=== PATIENT | male | born 1960 | race Caucasian/White ===

== ENCOUNTER 2016-08-21 20:48 | Inpatient (IN) | payer MEDICARE, OTHER ==
--- NOTE | ~2016-08-21 | HP ---
History And Physical [address] [address] NAME: YADI KELLY : 64 STATUS : ADM IN PAT#: [id number] AGE: 56 ADM/REG DATE : 08/21/16 MR#: [id number] REPORT SERV DATE: 08/22/16 DICTATED BY: RAY SÁNCHEZ DATE: 08/21/16 REPORT STATUS : Draft TRANSCRIBED BY: MODDg DATE: 08/21/16 DATE OF ADMISSION: 08/21/2016 CHIEF COMPLAINT: A 56-year-old male presenting with recurrent left leg cellulitis. HISTORY OF PRESENTING ILLNESS: The patient's history was obtained through an interview with the patient coupled with review of [facility] and medical records. The patient has chronic venous stasis with occasional ulcerations and infection particularly affecting his left lower extremity. He states that just on the day of admission, he began to develop extreme left leg pain that reminded him of previous infections related to his lymphedema and venous stasis. He developed chills, rigors, subjective fevers. He described left leg discomfort, an aching quality, "like an elephant kicking you," 10/10 severity. He has chronic wheeze, but denies shortness of breath. He has a chronic nonproductive cough. All these symptoms are stable from baseline. No chest pain. No abdominal pain. No headache. No nausea or vomiting. No change of bowel or bladder habit. REVIEW OF SYSTEMS: Otherwise, a 14-point review of systems was obtained and was negative. PAST MEDICAL HISTORY: 1. Bilateral leg cellulitis mostly affecting the left lower extremity with stasis ulcers previously with MSSA and Pseudomonas. 2. DVT, but not on blood thinner any longer. 3. Headaches. 4. Irritable bowel syndrome. 5. Morbid obesity with body mass index greater than 80 and functional paraplegia now. 6. Pneumonia. 7. Hypertension. 8. B12 deficiency. 9. Left lower extremity cyanosis. 10.COPD. PAST SURGICAL HISTORY: 1. Perforated ulcer surgery. 2. Bilateral hip surgery. 3. Vein ligation surgery of the legs. 4. Ear surgeries. History And Physical [address] [address] NAME: YADI KELLY : 64 STATUS : ADM IN PAT#: [id number] AGE: 56 ADM/REG DATE : 08/21/16 MR#: [id number] REPORT SERV DATE: 08/22/16 DICTATED BY: RAY SÁNCHEZ DATE: 08/21/16 REPORT STATUS : Draft TRANSCRIBED BY: MC DATE: 08/21/16 ALLERGIES: SULFA AND AN INTOLERANCE AT TIMES TO GREEN VEGETABLES. SOCIAL HISTORY: The patient smokes cigarettes. Drinks occasional alcohol. He lives with a girlfriend, who helps take care of him. He is wheelchair bound. He has no children. FAMILY HISTORY: Diabetes and heart disease. CURRENT MEDICATIONS: Include albuterol inhaler, Augmentin 875 mg p.o. b.i.d., Silvadene cream. PHYSICAL EXAMINATION: VITAL SIGNS: Temperature 98.6, pulse 114, blood pressure 136/86, respiratory rate 19, O2 saturation 93% on 3 L nasal cannula. GENERAL: A pleasant, cooperative male, in no particular distress at this time. HEENT: Pupils equal, round, and reactive to light. No conjunctival pallor. No scleral icterus. Nares are patent. Oropharynx is clear of obstruction. Moist mucous membranes. NECK: Trachea midline. No thyromegaly. LYMPH: No cervical lymphadenopathy. No supraclavicular lymphadenopathy. No left inguinal lymphadenopathy can be appreciated, although exam is limited by the patient's morbid obesity. RESPIRATORY: The patient does have scattered wheezes and mild upper respiratory rhonchi, prolonged expiratory phase. He has a nonlabored respiratory effort though. CARDIOVASCULAR: Tachycardic. Regular rhythm. No murmurs, rubs, or gallops. Chronic appearing lower extremity edema of the left more affected than the right. ABDOMEN: Central pattern of morbid obesity, but nontender throughout. No hepatosplenomegaly can be appreciated. DERMATOLOGICAL: Warm, dry extremities. The patient's left lower extremity shows significant cyanotic changes with a purplish discoloration and scaling of the skin. His left leg shows extensive areas of heat that is literally radiating off his leg. Scattered areas of erythema. I do not appreciate any purulent drainage to culture at this time, but it is tender throughout and swollen. PSYCHIATRIC: Normal affect. Good mood. Alert and oriented x3. LABORATORY DATA: White blood cell count 7.7, hemoglobin 17, hematocrit 52, platelets 99. Sodium 140, potassium 4.0, chloride 100, bicarb 32, BUN 8, creatinine 0.76, glucose 141, albumin 2.7. Lactic acid 1.9. Liver enzymes within normal limits. ASSESSMENT AND PLAN: 1. Left leg cellulitis with venous stasis ulcers. Check blood cultures. Place on IV vancomycin with history of staph infection and IV Zosyn with history of Pseudomonas. Obtain a wound care consult. 2. Morbid obesity with functional paraplegia. Body mass index of greater than 80. 3. Chronic left foot cyanosis. 4. Chronic obstructive pulmonary disease. Duo nebulizers. Check chest x-ray. 5. Thrombocytopenia. We will monitor closely. History And Physical [address] [address] NAME: YADI KELLY : 64 STATUS : ADM IN [facility]#: [id number] AGE: 56 ADM/REG DATE : 08/21/16 MR#: [id number] REPORT SERV DATE: 08/22/16 DICTATED BY: RAY SÁNCHEZ DATE: 08/21/16 REPORT STATUS : Draft TRANSCRIBED BY: MC DATE: 08/21/16 [facility] Ray Sánchez M.D. / [id number] CC: Bambi Marie M.D.
--- NOTE | ~2016-08-21 | DS ---
Discharge Summary [id number] [place]. [address] NAME: YADI KELLY : 64 STATUS : DIS IN PAT#: [id number] AGE: 56 ADM/REG DATE : 08/21/16 MR#: [id number] REPORT SERV DATE: 08/27/16 DICTATED BY: NAHOMY OLMSTEAD DATE: 08/26/16 REPORT STATUS : Draft TRANSCRIBED BY: MC DATE: 08/26/16 ADMISSION DATE: 08/21/2016 DISCHARGE DATE: 08/26/2016 REASON FOR ADMISSION: Recurrent cellulitis. HISTORY OF PRESENT ILLNESS: Please refer Dr. Ritesh Sánchez's history and physical dated 08/21/2016 for complete details regarding the patient's admission. In brief, the patient was admitted to the Hospitalist Service for management of his left lower extremity cellulitis. HOSPITAL COURSE: The patient had uncomplicated hospital course. The patient is super morbidly obese. He has chronic venous stasis ulcers. He uses home health wound care. He noticed that his extremities were becoming more swollen and red. He was admitted to the Hospitalist Service for IV antibiotics. He was initially started on vancomycin and Zosyn. I switched him over to vancomycin and Ancef. He has completed about six days now worth of IV antibiotics. His still continues to have chronic lymphedema and stasis ulcers, however, his erythema has markedly improved. I also tried add Lasix IV diuresis, but he was declining it because he would have to urinate more frequently and could not get to the commode quickly enough, so he had refused most of the dosing. The patient has reached maximal hospitalization and will be discharged home today in a stable condition. DISCHARGE DIAGNOSES: Left leg cellulitis with venous stasis ulcers now resolving, chronic lymphedema, morbid obesity with functional paraplegia, chronic hypoxic respiratory failure with 3 liters baseline nasal cannula, chronic obstructive pulmonary disease, thrombocytopenia, and chronic left foot cyanosis. PROCEDURES: Routine labs and chest x-ray. DISCHARGE MEDICATIONS: Include albuterol p.r.n., Silvadene cream, doxycycline 100 mg twice a day for five days, Ceftin 500 mg twice a day for five days, and hydrocodone #12 given. FOLLOWUP: The patient will follow up with PCP and home health. ANGE Nahomy Olmstead MD / [id number] CC: Nahomy Olmstead MD
[~2016-08-21 20:48] MED LIST: ACET500CAP PO; AUG875 PO; COMBIVENT RESPIM4 GM INH; DURICEF PO; PENICILLN VK500 MG PO; PRIN10 PO; PROAIR HFA INH; SILVADENE CREAM 1% TOP; SYMBICORT INH; UNKNOWN ABX PO; VENTOLIN HFA INH
[2016-08-21 21:03] LABS: BASOPHILS 0 %; EOSINOPHILS 0.1 %; EOSINOPHILS ABSOLUTE 0.01 10/3/uL (0.0-0.53); HEMATOCRIT 51.7 % (40.0-51.0); HEMOGLOBIN 17.4 g/dL (13.6-17.8); LYMPHOCYTES 4.6 %; LYMPHOCYTES ABSOLUTE 0.35 10/3/uL (0.67-4.30); MEAN CORPUS HGB CONC 33.7 g/dL (32.0-36.0); MEAN CORPUSCULAR HEMOGLOB 33.7 pg (26.0-34.0); MEAN PLATELET VOLUME 10.2 fL (9.2-13.0); MONOCYTES 2.4 %; MONOCYTES ABSOLUTE 0.18 10/3/uL (0.21-1.20); NEUTROPHILS 92.9 %; NEUTROPHILS ABSOLUTE 7.11 10/3/uL (2.02-8.40); RED CELL COUNT 5.17 10/6/uL (4.7-6.1)
[2016-08-21 21:04] LABS: ER CBC TAT 0 Hrs 05 Mins; MANUAL DIFF NO %; PLATELET COUNT 99 10/3/uL (150-400); WHITE BLOOD CELLS 7.7 10/3/uL (4.5-10.5)
[2016-08-21 21:11] LABS: INTERNATIONAL NORMAL RATI 1.1 UNITS (-); PARTIAL THROMBO TIME 30.2 SEC (22.5-37.2)
[2016-08-21 21:17] LABS: A/G RATIO 0.5 (0.7-1.9); ALBUMIN 2.7 G/DL (3.5-5.0); ALKALINE PHOSPHATASE 117 U/L (45-117); BUN (BLOOD UREA NITROGEN) 8 MG/DL (6-23); CALCIUM, SERUM 8.2 MG/DL (8.5-10.4); CHLORIDE, SERUM 100 MMOL/L (96-112); CO2 (CARBON DIOXIDE) 32 MMOL/L (24-34); CREATININE 0.76 MG/DL (0.70-1.30); GFR AFRICAN AMERICAN 120 ML/MIN (>=60); GFR NON AFRICAN AMERICAN 103 ML/MIN (>=60); GLUCOSE, SERUM 141 MG/DL (60-99); SGOT(AST) 33 U/L (5-40); SGPT(ALT) 7 U/L (5-65); SODIUM, SERUM 140 MMOL/L (135-148); TOTAL BILIRUBIN 0.9 MG/DL (0-1.2); TOTAL PROTEIN 7.7 G/DL (6.0-8.5)
[2016-08-21 21:19] LABS: LACTATE 1.9 MMOL/L (0.3-2.4)
[2016-08-21 22:33] LABS: WBC (NOT ORDERED) (RFLEX) 0 (0-5)
[2016-08-21 22:39] LABS: ASCORBIC ACID (UR NOT ORDER) NEG (NEG); BILIRUBIN, URINE NEGATIVE (NEG); KETONE, URINE NEGATIVE (NEG); LEUKOCYTE ESTERASE(NOT OR NEG (NEG); NITRITE (URINE) NEG (NEG)
[2016-08-22 06:59] LABS: BASOPHILS 0.1 %; BASOPHILS ABSOLUTE 0.02 10/3/uL (0.0-0.16); EOSINOPHILS 0.2 %; EOSINOPHILS ABSOLUTE 0.03 10/3/uL (0.0-0.53); HEMATOCRIT 50.7 % (40.0-51.0); HEMOGLOBIN 16.3 g/dL (13.6-17.8); IMMATURE GRANULOCYTES 0.5 %; IMMATURE GRANULOCYTES ABSOLUTE 0.07 10/3/uL (0.0-0.11); LYMPHOCYTES 4.8 %; MEAN CORPUS HGB CONC 32.1 g/dL (32.0-36.0); MEAN CORPUSCULAR HEMOGLOB 32.7 pg (26.0-34.0); MEAN CORPUSCULAR VOLUME 101.8 fL (80-100); MONOCYTES 2.3 %; MONOCYTES ABSOLUTE 0.34 10/3/uL (0.21-1.20); NEUTROPHILS 92.1 %; NEUTROPHILS ABSOLUTE 13.52 10/3/uL (2.02-8.40); PLATELET COUNT 104 10/3/uL (150-400); RED CELL COUNT 4.98 10/6/uL (4.7-6.1)
[2016-08-22 07:00] LABS: WHITE BLOOD CELLS 14.7 10/3/uL (4.5-10.5)
[2016-08-22 07:01] LABS: MANUAL DIFF NO %
[2016-08-22 07:05] LABS: INTERNATIONAL NORMAL RATI 1.2 UNITS (-); PARTIAL THROMBO TIME 33.7 SEC (22.5-37.2); PROTIME (NOT ORD) 15.2 SEC (12.0-14.5)
[2016-08-22 07:20] LABS: A/G RATIO 0.5 (0.7-1.9); ALBUMIN 2.3 G/DL (3.5-5.0); ALKALINE PHOSPHATASE 88 U/L (45-117); BUN (BLOOD UREA NITROGEN) 12 MG/DL (6-23); CHLORIDE, SERUM 99 MMOL/L (96-112); CO2 (CARBON DIOXIDE) 30 MMOL/L (24-34); CREATININE 0.76 MG/DL (0.70-1.30); GFR AFRICAN AMERICAN 120 ML/MIN (>=60); GFR NON AFRICAN AMERICAN 103 ML/MIN (>=60); GLOBULIN 4.6 G/DL (2.5-4.1); GLUCOSE, SERUM 94 MG/DL (60-99); POTASSIUM, SERUM 4.1 MMOL/L (3.5-5.3); SGOT(AST) 30 U/L (5-40); SGPT(ALT) 8 U/L (5-65); SODIUM, SERUM 137 MMOL/L (135-148); TOTAL BILIRUBIN 2.9 MG/DL (0-1.2); TOTAL PROTEIN 6.9 G/DL (6.0-8.5)
[2016-08-23 05:48] LABS: BASOPHILS 0.1 %; BASOPHILS ABSOLUTE 0.01 10/3/uL (0.0-0.16); EOSINOPHILS 0.8 %; EOSINOPHILS ABSOLUTE 0.06 10/3/uL (0.0-0.53); HEMATOCRIT 46.8 % (40.0-51.0); HEMOGLOBIN 15.3 g/dL (13.6-17.8); IMMATURE GRANULOCYTES 0.4 %; IMMATURE GRANULOCYTES ABSOLUTE 0.03 10/3/uL (0.0-0.11); LYMPHOCYTES 10.5 %; LYMPHOCYTES ABSOLUTE 0.84 10/3/uL (0.67-4.30); MANUAL DIFF NO %; MEAN CORPUS HGB CONC 32.7 g/dL (32.0-36.0); MEAN CORPUSCULAR HEMOGLOB 33.4 pg (26.0-34.0); MEAN CORPUSCULAR VOLUME 102.2 fL (80-100); MEAN PLATELET VOLUME 10.2 fL (9.2-13.0); MONOCYTES 5.9 %; MONOCYTES ABSOLUTE 0.47 10/3/uL (0.21-1.20); NEUTROPHILS 82.3 %; NEUTROPHILS ABSOLUTE 6.57 10/3/uL (2.02-8.40); PLATELET COUNT 96 10/3/uL (150-400); RBC DISTRIBUTION WIDTH 14.2 % (12.0-16.0); RED CELL COUNT 4.58 10/6/uL (4.7-6.1)
[2016-08-23 06:05] LABS: A/G RATIO 0.5 (0.7-1.9); ALBUMIN 2.2 G/DL (3.5-5.0); ALKALINE PHOSPHATASE 82 U/L (45-117); BUN (BLOOD UREA NITROGEN) 9 MG/DL (6-23); CALCIUM, SERUM 7.9 MG/DL (8.5-10.4); CHLORIDE, SERUM 99 MMOL/L (96-112); CO2 (CARBON DIOXIDE) 33 MMOL/L (24-34); CREATININE 0.67 MG/DL (0.70-1.30); GFR AFRICAN AMERICAN 126 ML/MIN (>=60); GFR NON AFRICAN AMERICAN 109 ML/MIN (>=60); GLOBULIN 4.6 G/DL (2.5-4.1); POTASSIUM, SERUM 4.1 MMOL/L (3.5-5.3); SGOT(AST) 29 U/L (5-40); SGPT(ALT) 8 U/L (5-65); SODIUM, SERUM 136 MMOL/L (135-148); TOTAL PROTEIN 6.8 G/DL (6.0-8.5)
[2016-08-23 06:11] LABS: GLUCOSE, SERUM 113 MG/DL (60-99); TOTAL BILIRUBIN 1.8 MG/DL (0-1.2)
[2016-08-23 06:43] LABS: PROCALCITONIN 4.58 ng/mL (<0.5)
[2016-08-24 07:29] LABS: BUN (BLOOD UREA NITROGEN) 8 MG/DL (6-23); CHLORIDE, SERUM 97 MMOL/L (96-112); CO2 (CARBON DIOXIDE) 36 MMOL/L (24-34); CREATININE 0.64 MG/DL (0.70-1.30); GFR AFRICAN AMERICAN 129 ML/MIN (>=60); GFR NON AFRICAN AMERICAN 111 ML/MIN (>=60); GLUCOSE, SERUM 94 MG/DL (60-99); PHOSPHORUS, SERUM 3.5 MG/DL (2.5-4.5); SODIUM, SERUM 138 MMOL/L (135-148); VANCOMYCIN TROUGH 9.4 MCG/ML (10.0-20.0)
[2016-08-26] MEDS ORDERED: CEFT5 PO (10:01)
[2016-08-26] MEDS ORDERED: NORCO1 TA1 PO (10:02)
[2016-08-26] MEDS ORDERED: DORYX100 MG PO (10:03)
[2016-11-26] MEDS ORDERED: AUG875 PO (22:06)
[2016-11-30] MEDS ORDERED: DURICEF PO (11:20)
[2016-11-30] MEDS ORDERED: NORCO1 TA1 PO (11:20)
== END 2016-08-26 14:34 | disposition home health service (06) | DRG 603 ==
LOC: ER 20:48 → 5SO 20:49
PROVIDERS: Hospitalist; Internal Medicine; Specialist
DX: L03.116 Cellulitis of left lower limb (principal); D69.6 Thrombocytopenia, unspecified; Z68.45 Body mass index [BMI] 70 or greater, adult; E66.01 Morbid (severe) obesity due to excess calories; F44.4 Conversion disorder with motor symptom or deficit; I87.8 Other specified disorders of veins; K58.9 Irritable bowel syndrome, unspecified; Z88.2 Allergy status to sulfonamides; R23.0 Cyanosis; J44.9 Chronic obstructive pulmonary disease, unspecified
CPT/HCPCS: 71010; 80048; 80053; 80202; 81001; 83605; 83690; 83735; 83880; 84100; 84145; 84443; 85025; 85610; 85730; 87040; 93005; 99285; A9270-GY; J0690; J2543; J3370

== ENCOUNTER 2016-10-16 03:19 | Emergency (ER) | payer MEDICARE, OTHER ==
[2016-10-16 03:01] LABS: BASOPHILS 0.1 %; BASOPHILS ABSOLUTE 0.01 10/3/uL (0.0-0.16); EOSINOPHILS 0.1 %; EOSINOPHILS ABSOLUTE 0.01 10/3/uL (0.0-0.53); ER CBC TAT 0 Hrs 03 Mins; HEMATOCRIT 47.9 % (40.0-51.0); HEMOGLOBIN 15.6 g/dL (13.6-17.8); IMMATURE GRANULOCYTES 0.4 %; IMMATURE GRANULOCYTES ABSOLUTE 0.04 10/3/uL (0.0-0.11); LYMPHOCYTES 7.3 %; LYMPHOCYTES ABSOLUTE 0.75 10/3/uL (0.67-4.30); MANUAL DIFF NO %; MEAN CORPUS HGB CONC 32.6 g/dL (32.0-36.0); MEAN CORPUSCULAR HEMOGLOB 32.9 pg (26.0-34.0); MEAN CORPUSCULAR VOLUME 101.1 fL (80-100); MONOCYTES 4.6 %; MONOCYTES ABSOLUTE 0.47 10/3/uL (0.21-1.20); NEUTROPHILS 87.5 %; PLATELET COUNT 114 10/3/uL (150-400); RED CELL COUNT 4.74 10/6/uL (4.7-6.1); WHITE BLOOD CELLS 10.3 10/3/uL (4.5-10.5)
[2016-10-16 03:17] LABS: A/G RATIO 0.5 (0.7-1.9); ALBUMIN 2.5 G/DL (3.5-5.0); ALKALINE PHOSPHATASE 105 U/L (45-117); BUN (BLOOD UREA NITROGEN) 9 MG/DL (6-23); CHLORIDE, SERUM 100 MMOL/L (96-112); CO2 (CARBON DIOXIDE) 33 MMOL/L (24-34); CREATININE 0.75 MG/DL (0.70-1.30); GFR AFRICAN AMERICAN 121 ML/MIN (>=60); GFR NON AFRICAN AMERICAN 104 ML/MIN (>=60); GLOBULIN 4.6 G/DL (2.5-4.1); GLUCOSE, SERUM 120 MG/DL (60-99); POTASSIUM, SERUM 4.2 MMOL/L (3.5-5.3); SGOT(AST) 32 U/L (5-40); SGPT(ALT) 9 U/L (5-65); SODIUM, SERUM 135 MMOL/L (135-148); TOTAL BILIRUBIN 1.1 MG/DL (0-1.2); TOTAL PROTEIN 7.1 G/DL (6.0-8.5)
[~2016-10-16 03:19] MED LIST changes: +CEFT5 PO; +DORYX100 MG PO; +NORCO1 TA1 PO
[2016-11-26] MEDS ORDERED: AUG875 PO (22:06)
[2016-11-30] MEDS ORDERED: NORCO1 TA1 PO (11:20)
[2016-11-30] MEDS ORDERED: DURICEF PO (11:20)
== END 2016-10-16 09:00 | disposition home or self-care (01) ==
LOC: ER 03:19
PROVIDERS: Hospitalist
DX: L03.116 Cellulitis of left lower limb (principal); R23.0 Cyanosis; F17.200 Nicotine dependence, unspecified, uncomplicated; J44.9 Chronic obstructive pulmonary disease, unspecified; J18.9 Pneumonia, unspecified organism; I10 Essential (primary) hypertension; F03.90 Unspecified dementia, unspecified severity, without behavioral disturbance, psychotic disturbance, mood disturbance, and anxiety; E66.01 Morbid (severe) obesity due to excess calories; Z86.718 Personal history of other venous thrombosis and embolism; Z88.2 Allergy status to sulfonamides; Z88.1 Allergy status to other antibiotic agents; Z79.899 Other long term (current) drug therapy; Z91.018 Allergy to other foods
CPT/HCPCS: 80053; 85025; 87040; 96365; 96366; 99284; J3370